=== PATIENT | female | born 1935 | race Caucasian/White ===

== ENCOUNTER 2018-10-01 23:04 | Inpatient (IN) | payer MEDICAID, MEDICARE ==
[~2018-10-01] VITALS: Ht 152.4 cm; Wt 53.6 kg
--- NOTE | 2018-10-01 23:22 | NUR ---
PT A/OX4, PRESENTS TO THE ER C/O CHEST PRESSURE. EKG PERFORMED. PT IS HYPERTENSIVE, ER AWARE. PT DENIES SOB. GABY SERRANO AT BEDSIDE FOR MSE. Addendum: 10/01/18 at 2336 by DAKIM PT STATES C/P STARTED AROUND 2200 TODAY, NON-PROVOKING, PRESSURE-LIKE, DOES NOT RADIATE, 05/03, CONSTANT. PT WAS AT REST WHEN THE C/P STARTED.
[2018-10-01] MEDS ORDERED: METOPROLOL TARTRATE 5 MG/5 ML VIAL IVP ONE ×2 (23:30)
[2018-10-01] MEDS ORDERED: NITROGLYCERIN OINT 1 GM PACKET TP ONE ×2 (23:30)
[2018-10-01] MEDS ORDERED: ASPIRIN 325 MG TABLET ONE (23:30)
[2018-10-01] MEDS ORDERED: ASPIRIN 325 MG TABLET PO ONE (23:30)
[2018-10-01 23:56] LABS: BASOPHILS # (AUTO) 0.1 K/uL (0.0-8.0); BASOPHILS % (AUTO) 0.9 % (0.0-2.0); EOSINOPHILS # (AUTO) 0.2 K/uL (0.0-0.7); EOSINOPHILS % (AUTO) 2.1 % (0.0-7.0); HEMATOCRIT 42.1 % (31.2-41.9); HEMOGLOBIN 13.6 g/dL (10.9-14.3); LYMPHOCYTES # (AUTO) 2.7 K/uL (20.0-40.0); LYMPHOCYTES % (AUTO) 33.8 % (20.5-51.5); MEAN CORPUSCULAR HEMOGLOBIN 22.8 uug (24.7-32.8); MEAN CORPUSCULAR HGB CONC 32 g/dL (32.3-35.6); MEAN CORPUSCULAR VOLUME 70.3 fL (75.5-95.3); MONOCYTES # (AUTO) 0.7 K/uL (2.0-10.0); MONOCYTES % (AUTO) 8.3 % (0.0-11.0); NEUTROPHILS # (AUTO) 4.4 K/uL (1.8-8.9); NEUTROPHILS % (AUTO) 54.9 % (38.5-71.5); PLATELET COUNT (AUTO) 231 K/uL (179-408); RED BLOOD CELL COUNT(AUTO) 5.98 MIL/uL (3.63-4.92)
[2018-10-01 23:58] LABS: CARBON DIOXIDE 28 mmol/L (21-32); CHLORIDE 96 mmol/L (98-107); GLUCOSE 155 mg/dL (74-106); POTASSIUM 4.1 mmol/L (3.5-5.1); UREA NITROGEN, BLOOD 31 mg/dL (7-18)
[2018-10-02 00:11] LABS: ALANINE AMINOTRANSFERASE 31 U/L (14-59); ALKALINE PHOSPHATASE 90 U/L (50-136); ASPARTATE AMINOTRANSFERASE 23 U/L (15-37); BILIRUBIN,DIRECT < 0.1 mg/dL (0.0-0.2); BILIRUBIN,TOTAL 0.3 mg/dL (0.2-1.0); TOTAL PROTEIN, SERUM 8.9 g/dL (6.4-8.2)
[2018-10-02] MEDS ORDERED: ENOXAPARIN SODIUM 60 MG/0.6 ML DISP.SYRIN SQ ONE ×2 (00:30→00:46)
--- NOTE | 2018-10-02 00:34 | NUR ---
ER SPEAKING W/ DR. SAENZ RE PT'S ADMISSION.
[2018-10-02] MEDS ORDERED: Z GUARD REMEDY PASTE 57 GM TUBE TOP PRN (00:45)
[2018-10-02] MEDS ORDERED: MAGNESIUM HYDROXIDE 30 ML LIQUID UDC PO PRN (00:45)
[2018-10-02] MEDS ORDERED: ACETAMINOPHEN 325 MG TABLET PO PRN (00:45)
[2018-10-02] MEDS ORDERED: ONDANSETRON 4 MG/2 ML VIAL IV PRN (00:45)
[2018-10-02] MEDS ORDERED: MORPHINE SULFATE 2 MG/1 ML DISP.SYRIN IV PRN ×2 (00:45→09:45)
[2018-10-02] MEDS ORDERED: NITROGLYCERIN 0.4 MG/TAB BOTTLE SL PRN (00:45)
[2018-10-02] MEDS ORDERED: HYDROCODONE/APAP 5-325MG TABLET PO PRN (00:45)
[2018-10-02] MEDS ORDERED: INSULIN REGULAR, HUMAN 300 UNIT/3 ML VIAL SQ PRN (00:45)
[2018-10-02] MEDS ORDERED: DEXTROSE 50% 50 ML DISP.SYRIN IV PRN (00:45)
--- NOTE | 2018-10-02 01:03 | NUR ---
GAVE ADMITTING REPORT TO NICOLETTE BURK.
[2018-10-02] MEDS ORDERED: DILT300C25 PO (02:29)
[2018-10-02] MEDS ORDERED: ALEN70TA6 PO (02:29)
[2018-10-02] MEDS ORDERED: CLON0.1T PO (02:29)
[2018-10-02] MEDS ORDERED: EMPA10TA PO (02:29)
[2018-10-02] MEDS ORDERED: PRAV40TA3 PO (02:29)
[2018-10-02] MEDS ORDERED: EMPA25TA PO (02:29)
[2018-10-02] MEDS ORDERED: GLIP1TAB4 PO (02:29)
[2018-10-02] MEDS ORDERED: ATEN50TA PO (02:29)
[2018-10-02] MEDS ORDERED: CYAN-10 IJ (02:29)
[2018-10-02] MEDS ORDERED: ATEN100T PO (02:29)
[2018-10-02] MEDS ORDERED: LOSA1TAB39 PO (02:29)
--- NOTE | 2018-10-02 02:40 | NUR ---
ADMITTED 83 YEAR OLD FEMALE. DX: UNSTABLE ANGINA. WAS IN NO ACUTE DISTRESS. A/O X4. HAD NO COMPLAINTS OF SOB OR PAIN. IV LINE ON THE LEFT AC INTACT AND PATENT. SAFETY MEASURES INITIATED. BED IS IN A LOW AND LOCKED POSITION. CALL LIGHT IS WITHIN REACH. WILL CONTINUE TO MONITOR.
--- NOTE | 2018-10-02 02:45 | NUR ---
Pt. admitted to TELE 223, under care of Dr. SAENZ. [place] completed
[2018-10-02 03:07] VITALS: BP 160/60
[2018-10-02 04:00] VITALS: BP 135/51
[2018-10-02] MEDS: BLOOD SUGAR DIAGNOSTIC 1 EACH STRIP VI SCH ×2 (06:32→12:15)
[2018-10-02 06:42] LABS: BASOPHILS % (AUTO) 0.6 % (0.0-2.0); EOSINOPHILS # (AUTO) 0.2 K/uL (0.0-0.7); EOSINOPHILS % (AUTO) 2.3 % (0.0-7.0); HEMOGLOBIN 11.8 g/dL (10.9-14.3); LYMPHOCYTES # (AUTO) 2.3 K/uL (20.0-40.0); LYMPHOCYTES % (AUTO) 32.6 % (20.5-51.5); MEAN CORPUSCULAR HEMOGLOBIN 22.3 uug (24.7-32.8); MEAN CORPUSCULAR HGB CONC 31 g/dL (32.3-35.6); MEAN CORPUSCULAR VOLUME 71.9 fL (75.5-95.3); MONOCYTES # (AUTO) 0.5 K/uL (2.0-10.0); MONOCYTES % (AUTO) 6.8 % (0.0-11.0); NEUTROPHILS % (AUTO) 57.7 % (38.5-71.5); PLATELET COUNT (AUTO) 191 K/uL (179-408); RED BLOOD CELL COUNT(AUTO) 5.28 MIL/uL (3.63-4.92)
--- NOTE | 2018-10-02 06:44 | NUR ---
PATIENT SLEPT WELL THROUGHOUT SHIFT. HAD NO COMPLAINTS OF PAIN OR SOB. SAFETY MEASURES PROVIDED. WILL ENDORSE CONTINUITY OF CARE TO NEXT SHIFT.
[2018-10-02 06:56] LABS: CARBON DIOXIDE 30 mmol/L (21-32); CHLORIDE 102 mmol/L (98-107); CREATININE 0.9 mg/dL (0.6-1.3); GLUCOSE 117 mg/dL (74-106); PHOSPHOROUS 4.9 mg/dL (2.5-4.9); UREA NITROGEN, BLOOD 26 mg/dL (7-18)
[2018-10-02] MEDS ORDERED: ASPIRIN EC 81 MG TABLET.DR PO SCH (09:00)
[2018-10-02] MEDS ORDERED: PNEUMOCOCCAL 23-VAL P-SAC VAC 0.5 ML VIAL IM ONE (09:00)
--- NOTE | 2018-10-02 09:35 | NUR ---
NON ADMIN PNEUMONA VACCINE. PHARMACY NOTIFIED. PATIENT DOES NOT KNOW IF SHE HAS TAKEN PNEUMONIA VACCINE, PATIENT STATED "I DON'T KNOW". WILL NEED TO VERIFY WITH PATIENT'S FAMILY TO OBTAIN VACCINATION RECORDS. ENDORSED TO NICOLETTE SLADE.
--- NOTE | 2018-10-02 10:00 | NUR ---
report received from day shift nurse Merly WILL
[2018-10-02] MEDS ORDERED: DILTIAZEM HCL CD 300 MG CAP.SR.24H PO SCH (10:30)
[2018-10-02] MEDS ORDERED: LOSARTAN POTASSIUM 50 MG TABLET PO SCH (10:30)
[2018-10-02] MEDS ORDERED: HYDROCHLOROTHIAZIDE 25 MG TABLET PO SCH (10:30)
[2018-10-02 11:27] VITALS: BP 165/62
--- NOTE | 2018-10-02 11:30 | NUR ---
DOCTOR ADELA IN ROOM TO SEE PATIENT. PENDING ECHO CARDIOGRAM PLAN FOR TODAY.
[2018-10-02] MEDS ORDERED: LEVO50TA8 PO (11:37)
--- NOTE | 2018-10-02 12:40 | NUR ---
ECHO BEING DONE AT BEDSIDE DONE AT BEDSIDE.
[2018-10-02] MEDS ORDERED: CLONIDINE HCL 0.1 MG TABLET PO SCH (13:00)
[2018-10-02] MEDS ORDERED: ZOLP10TA6 PO (13:45)
[2018-10-02] MEDS ORDERED: ASPI81TA31 PO (13:46)
[2018-10-02 14:26] VITALS: BP 146/49
--- NOTE | 2018-10-02 15:09 | NUR ---
PATIENT DISCHARGED HOME. ALL DISCHARGE PAPERWORK GIVEN TO PATIENT AND SIGNED BY PATIENT AND DAUGHTER
[2018-10-02] MEDS ORDERED: SIMVASTATIN 40 MG TABLET PO SCH (21:00)
[2018-10-02] MEDS ORDERED: ATENOLOL 50 MG TABLET PO SCH (21:00)
[2018-10-03] MEDS ORDERED: LEVOTHYROXINE SODIUM 50 MCG TABLET PO SCH (07:00)
[2018-10-03] MEDS ORDERED: ATENOLOL 100 MG TABLET PO SCH (09:00)
== END 2018-10-02 15:10 | disposition home or self-care (01) | DRG 199 ==
LOC: ER 23:04 → TELE 10-02 02:41
PROVIDERS: ATTEND Nurse Practitioner Acute Care
DX: I16.0 Hypertensive urgency (principal); E86.0 Dehydration; E11.9 Type 2 diabetes mellitus without complications; I08.3 Combined rheumatic disorders of mitral, aortic and tricuspid valves; M81.0 Age-related osteoporosis without current pathological fracture; E78.5 Hyperlipidemia, unspecified; R79.89 Other specified abnormal findings of blood chemistry; Z79.84 Long term (current) use of oral hypoglycemic drugs; Z79.899 Other long term (current) drug therapy; R53.1 Weakness; R19.7 Diarrhea, unspecified; T50.2X5A Adverse effect of carbonic-anhydrase inhibitors, benzothiadiazides and other diuretics, initial encounter; Y92.019 Unspecified place in single-family (private) house as the place of occurrence of the external cause; Z79.82 Long term (current) use of aspirin; I11.9 Hypertensive heart disease without heart failure
CPT/HCPCS: 36415; 70030-TC; 71045; 83735; 84100; 85025; 85730; 90732; 93005; 93307; A4663; G0378; J1650; J1815; J3490